=== PATIENT | male | born 1985 | race Caucasian/White ===

== ENCOUNTER 2017-04-29 08:00 | Outpatient (RCR) | payer OTHER, BC, SELFPAY ==
--- NOTE | 2017-01-22 09:29 | HP.OTEVAL ---
Patient's Visit Information CA MUÑOZ is a 31 year old M, referred to Occupational Therapy by Maryann Botello,, with a diagnosis of left small finger zone 1 flexor digitorum profundus laceration. Date of Evaluation: 01/21/17 Occupational Therapist: Joanna Bolden, OTR/Madhu, CHT - Subjective Subjective: This 31 year old male was seen for initial OT evaluation on 01-21-17. Pt was working at [employer] and injured his left hand suffering a tendon injury of the left samll finger flexor digitorum profundus zone 1. Injury date was 12-26-16 and sx was performed on 01-14-17. - Objective Objective/Observation: pt demo with newly healing incision- with orthosis removal noted red area over ulnar region indicating orthosis needs to be adj. - pt does indicate pain and states orthosis is uncomfortable. - Strength Manufacturing Engineering Technologist: right 115# left NT Lateral Pinch: right 14# left NT Tripod Pinch: right 12# left NT - Edema PIP: right LF 5.5 left 6.2 - Sensation Sensation Comments: reports no deficits - Hand/Wrist Evaluation Total Score of Pain & Functional Sections: 63 - Goals Goal:100% adherence to protocol: Yes Goal:Daily scar massage when approriate: Yes Goal:ROM equal to unaffected hand: Yes Goal:Manufacturing Engineering Technologist/Pinch strength at least 75% of unaffected hand: Yes Goal:No pain with affected hand use: Yes Goal:PIP Circumferences equal to unaffected hand: Yes Goal:Full use of affected hand in daily activities including: Yes Goal:Improvement in sensation documented by [place]: Yes Goal:Decrease scar hypersensitivity: Yes - Rehabilitation General Assessment: newly healing repair of left small finger flexor digitorum profundus lacerations zone 1 -. Performed a Modified [place] suture but with significant tightness of the profundus tendon due to the chronicity of the injury and as a result it held the small finger in increased flexed position- Tx will progress with zone 1 flexor tendon protocol. Rehabilitation Potential: Good - Anticipated Interventions Anticipated Interventions: A/AAROM/PROM, Edema Control, Scar Care, Triggerpoint Release, Desensitization, Modalities, Orthoses - Visit Plan Frequency: 2-3x /Week Duration: 6 Weeks General Plan: newly healing repair of left small finger flexor digitorum profundus lacerations zone 1 -. Performed a Modified [place] suture but with significant tightness of the profundus tendon due to the chronicity of the injury and as a result it held the small finger in increased flexed position- Tx will progress with zone 1 flexor tendon protocol. 2-3x week for 6 weeks- TEXT: Thank you for the opportunity to evaluate your patient. For Medicare and Medicare HMO plans, please review the plan of care and approve it. It will need to be FAXED BACK to us at [phone] for Medicare purposes. Please let me know if there are questions or concerns regarding this plan of care. Physician Signature: Date:
--- NOTE | 2017-02-26 09:20 | OTREVAL_ITS ---
Maryann Botello, It has been my pleasure to treat CA MUÑOZ over the last 10 visits for left small finger zone 1 flexor digitorum profundus laceration. Please see the progress note below for an update on the occupational therapy plan of care! Subjective: pt states he is doing good only wearing brace for work- Objective/Function: pt demo with scar tissue and limited DIP flex ability to hold position- the limited finger ext is to be expected due to the complication of the repair. pt is gaining function and will progress with flex tendon repair protocol and initiate strengthening at 8 weeks unless otherwise specified by doctor. Plan Frequency: 2-3x /Week Duration: 6 Weeks Plan: pt will be 7 weeks s/p next week- will cont with the AROM and scar mtg until pt reaches 8 weeks and will initiate strengthening. Anticipated Interventions Anticipated Interventions: A/AAROM/PROM, Edema Control, Scar Care, Triggerpoint Release, Desensitization, Modalities, Orthoses Please do not hesitate to contact me at [phone] by phone or Fax: if you have questions or concerns regarding this new plan of care! Sincerely, Joanna Bolden, OTR/L, CHT
--- NOTE | 2017-04-29 09:09 | HP.OTDCSUM ---
HP - OT D/C Summary It has been my pleasure to treat CA MUÑOZ under orders from Maryann Botello, for the diagnosis of left small finger zone 1 flexor digitorum profundus laceration for a total of 14 visit(s). Please see the following information for a summary of their discharge status. - Objective Objective/Function: pt demo with left legal contracts specialist of 115#. right legal contracts specialist 120#. left PIP -25/100. pt demo ROM WFL and pt has regained functional strength - Goals Patient Goals: Regain Mobility, Regain Strength, Return to Work, Decrease Swelling/Stiffness, Improve Fine Motor Skills, Use Hand/Wrist/Arm Normally Again, Sleep Better Goal:100% adherence to protocol: Yes Goal:Daily scar massage when approriate: Yes Goal:ROM equal to unaffected hand: Yes Goal:Software Project Lead/Pinch strength at least 75% of unaffected hand: Yes Goal:No pain with affected hand use: Yes Goal:PIP Circumferences equal to unaffected hand: Yes Goal:Full use of affected hand in daily activities including: Yes Goal:Improvement in sensation documented by [place]: Yes Goal:Decrease scar hypersensitivity: Yes - Plan Plan: D/C - D/C Information Discharge Comments: Pt was seen for 14/18 OT visits- pt reports he is ind. with all BADLs and IADls. and has no concerns with his functional ability- pt demo compliance throughout OT and has met all functional goals. pt is DC at this time. If there are questions or concerns regarding this patient's occupational therapy, please fell free to call me at [phone]. Thank you for the referral of this patient. Sincerely, Joanna Bolden, OTR/L, CHT
== END 2017-04-29 18:25 | disposition home or self-care (01) ==
LOC: OT 08:00
PROVIDERS: Visit Provider Orthopaedic Surgery Hand Surgery
DX: S66.127D Laceration of flexor muscle, fascia and tendon of left little finger at wrist and hand level, subsequent encounter (principal)
CPT/HCPCS: 97018; 97110; 97140; 97166; 97530